=== PATIENT | female | born 1950 | race Caucasian/White ===

== ENCOUNTER 2019-08-30 10:09 | Day surgery (SDC) | payer MEDICARE ==
[~2019-08-30] VITALS: Ht 152.4 cm; Wt 81.0 kg
[~2019-08-30 10:09] MED LIST: BUPIVACAINE/PF 0.5% ONE; EPINEPHRINE 1 MG/ML, 1ML ONE; LEVO50TA PO; None per pt; OMEP20TA62 PO; QUET200T4 PO; ZOLP10TA PO
[2019-08-30] MEDS ORDERED: LIDOCAINE 1%-EPI 1:100K, 20ML ONE (11:37)
[2019-08-30] MEDS ORDERED: SODIUM BICARBONATE 4.0%, 5ML ONE (11:37)
[2019-08-30] MEDS ORDERED: LIDOCAINE 1%, 20ML ONE (11:37)
[2019-08-30 11:42] VITALS: BP 159/70
[2019-08-30] MEDS ORDERED: LACTATED RINGERS 1,000 ML IV SCH (11:43)
[2019-08-30] MEDS ORDERED: ACETAMINOPHEN 500 MG TABLET PO ONE (12:00)
[2019-08-30] MEDS ORDERED: GABAPENTIN 300 MG CAPSULE PO ONE (12:00)
[2019-08-30] MEDS ORDERED: ONDANSETRON 2MG/ML, 2ML IVPush ONE (12:00)
[2019-08-30] MEDS ORDERED: SCOPOLAMINE PATCH, 1.5MG PATCH.TD72 TD ONE (12:00)
[2019-08-30] MEDS ORDERED: ISOSULFAN BLUE 10 MG/ML, 5ML IV ONE (13:32)
[2019-08-30] MEDS ORDERED: SUCCINYLCHOLINE 20 MG/ML, 10ML ONE (15:15)
[2019-08-30] MEDS ORDERED: FENTANYL PF 250 MCG/5ML ONE (15:15)
[2019-08-30] MEDS ORDERED: PROPOFOL 10 MG/ML, 20ML ONE (15:15)
[2019-08-30] MEDS ORDERED: NEOSTIGMINE 1 MG/ML, 10ML ONE (15:15)
[2019-08-30] MEDS ORDERED: CEFAZOLIN 1,000 MG ONE (15:15)
[2019-08-30] MEDS ORDERED: LIDOCAINE-MPF 2% ,5ML ONE (15:15)
[2019-08-30] MEDS ORDERED: EPHEDRINE 50 MG/ML, 1ML ONE (15:15)
[2019-08-30] MEDS ORDERED: MIDAZOLAM 1 MG/ML, 2ML ONE (15:15)
[2019-08-30] MEDS ORDERED: PROPOFOL 10 MG/ML, 50ML ONE (15:15)
[2019-08-30] MEDS ORDERED: DEXAMETHASONE 4 MG/ML, 1ML ONE (15:15)
[2019-08-30] MEDS ORDERED: GLYCOPYRROLATE 0.2MG/1ML, 5ML ONE (15:15)
[2019-08-30] MEDS ORDERED: LIDOCAINE 4%, 4 ML SYR/CANN TP ONE (15:15)
[2019-08-30] MEDS ORDERED: ONDANSETRON 2MG/ML, 2ML ONE (15:15)
[2019-08-30] MEDS ORDERED: ROCURONIUM 10MG/ML,5ML ONE (15:15)
[2019-08-30] MEDS ORDERED: PROMETHAZINE 25 MG SUPP PR PRN (15:30)
[2019-08-30] MEDS ORDERED: HYDROmorphone 2 MG/ML, 1ML IVPush PRN (15:30)
[2019-08-30] MEDS ORDERED: MIDAZOLAM 1 MG/ML, 2ML IV PRN (15:30)
[2019-08-30] MEDS ORDERED: OXYcodone 5 MG/5 ML ORAL.SOL UDC PO PRN (15:30)
[2019-08-30] MEDS ORDERED: ONDANSETRON ODT 8 MG PO PRN (15:30)
[2019-08-30] MEDS ORDERED: ONDANSETRON 2MG/ML, 2ML IV PRN (15:30)
[2019-08-30] MEDS ORDERED: LORazepam 2 MG/ML, 1ML IVPush PRN (15:30)
[2019-08-30] MEDS ORDERED: MEPERIDINE/PF 25MG/ML,1ML IVPush PRN (15:30)
[2019-08-30] MEDS ORDERED: PROMETHAZINE 25 MG/ML, 1ML IV PRN (15:30)
[2019-08-30] MEDS ORDERED: FENTANYL PF 100 MCG/2ML ONE (17:40)
[2019-08-30] MEDS ORDERED: OXYcodone 5 MG/5 ML ORAL.SOL UDC ONE (17:41)
[2019-08-30] MEDS: FENTANYL PF 100 MCG/2ML IV PRN ×2 (17:45→18:00)
[2019-08-30] MEDS ORDERED: hydrALAzine 20 MG/ML, 1ML ONE (18:08)
[2019-08-30] MEDS ORDERED: hydrALAzine 20 MG/ML, 1ML IV PRN (18:30)
== END 2019-08-30 21:05 | disposition home or self-care (01) ==
LOC: CFH 10:09 → EDSTATUS 15:00 → 4NE 18:40 → OUT 21:05
PROVIDERS: ATTEND Surgery
DX: D05.11 Intraductal carcinoma in situ of right breast (principal); N65.1 Disproportion of reconstructed breast; K21.9 Gastro-esophageal reflux disease without esophagitis; E03.9 Hypothyroidism, unspecified; Z79.890 Hormone replacement therapy; Z79.899 Other long term (current) drug therapy; Z88.0 Allergy status to penicillin; Z90.710 Acquired absence of both cervix and uterus; Z98.890 Other specified postprocedural states; Z80.3 Family history of malignant neoplasm of breast; Z82.49 Family history of ischemic heart disease and other diseases of the circulatory system
CPT/HCPCS: 19301; 19318; 19366; 76098; 88305; 88307; C1729; J0171; J0330; J0690; J1100; J2250; J2405; J2704; J2710; J3010; J3490; J7120; G0378

== ENCOUNTER → 2019-09-27 | Outpatient (CLI) | payer MEDICARE ==
[~2019-09-27] MED LIST changes: -BUPIVACAINE/PF 0.5% ONE; -EPINEPHRINE 1 MG/ML, 1ML ONE
== END | disposition home or self-care (01) ==
LOC: ROC 08:57
PROVIDERS: ATTEND Radiology Radiation Oncology
DX: C50.411 Malignant neoplasm of upper-outer quadrant of right female breast (principal)
CPT/HCPCS: 99214; G0463

== ENCOUNTER 2019-11-26 10:20 | Outpatient (CLI) | payer MEDICARE | END 2019-11-26 23:59 | disposition home or self-care (01) | LOC: ROC 10:20 | PROVIDERS: ATTEND Radiology Radiation Oncology | DX: D05.11 Intraductal carcinoma in situ of right breast (principal) | CPT/HCPCS: 99213; G0463 ==

== ENCOUNTER 2019-12-11 14:35 | Emergency (ER) | payer MEDICARE ==
[~2019-12-11] VITALS: Ht 160 cm; Wt 80.0 kg
[2019-12-11 15:45] LABS: IRON LEVEL 13 mcg/dL (50-170)
[2019-12-11 15:53] LABS: MEAN PLATELET VOLUME 8.7 fL (7.4-10.4); PLATELET COUNT 483 x10^3/uL (130-400); RED BLOOD COUNT 4.06 x10^6/uL (3.82-5.3); RED CELL DISTRIBUTION WIDTH 23.2 % (9.6-15.2)
[2019-12-11 16:09] LABS: % IRON SATURATION 2 % (20-55); TOTAL IRON BINDING CAPACITY 542 mcg/dL (250-450)
[2019-12-11 16:52] VITALS: BP 154/97
[2019-12-11 16:56] LABS: ANISOCYTOSIS 1+; BASOPHILS # (AUTO) 0.02 x10^3/uL (0-0.1); BASOPHILS % (AUTO) 0 % (0-1); EOSINOPHILS # (AUTO) 0.04 x10^3/uL (0-0.4); EOSINOPHILS % (AUTO) 1 % (1-7); HYPOCHROMIA 1+; LYMPHOCYTES # (AUTO) 0.76 x10^3/uL (1-3.4); LYMPHOCYTES % (AUTO) 12 % (22-44); MD MORPH REVIEW ONLY; MICROCYTOSIS 1+; MONOCYTES # (AUTO) 0.45 x10^3/uL (0.2-0.8); MONOCYTES % (AUTO) 7 % (2-9); NEUTROPHILS # (AUTO) 5.24 x10^3/uL (1.8-6.8); NEUTROPHILS % (AUTO) 81 % (42-75); OVALOCYTES 1+; POLYCHROMASIA 1+
[2019-12-11 16:57] LABS: <PLATELET ESTIMATE> INCREASED; LARGE PLATELETS 1+; TEAR DROPS 1+
[2019-12-11 17:13] LABS: HEMOGRAM NOTE RECHECKED
[2019-12-11 17:17] VITALS: BP 168/80
[2019-12-11 17:47] VITALS: BP 176/93
[2019-12-11 18:00] VITALS: BP 168/91
== END 2019-12-11 18:06 | disposition home or self-care (01) ==
LOC: ED 17:50
DX: D50.0 Iron deficiency anemia secondary to blood loss (chronic) (principal)
CPT/HCPCS: 36415; 36430; 82607; 83540; 83550; 85025; 86850; 86900; 86923; 99285; P9016